=== PATIENT | female | born 1975 | race Caucasian/White ===

== ENCOUNTER 2025-03-13 12:20 | Emergency (ER) | payer SELFPAY ==
[2025-03-13] MEDS ORDERED: Famotidine/PF 20 mg/2ml Vial ONE (12:38)
[2025-03-13 12:47] LABS: #Basophils 0.2 thou/uL (0.0-0.2); #Eosinophils 0.1 thou/uL (0.0-0.7); #Lymphocytes 2.0 thou/uL (1.20-3.40); #Monocytes 0.5 thou/uL (0.11-0.59); #Neutrophils 11.2 thou/uL (1.40-6.50); %Basophils 1.5 % (0.0-1.0); %Eosinophils 0.5 % (0.0-10.0); %Lymphocytes 14.5 % (21.0-51.0); %Monocytes 3.5 % (0.0-10.0); %Neutrophils 80.0 % (42.0-75.0); Hematocrit 42.1 % (36.0-47.0); Hemoglobin 14.4 g/dL (12.0-16.0); Mean Corpuscular Hemoglobin 27.4 pg (27.0-31.0); Mean Corpuscular Volume 80.0 fl (78.0-98.0); Platelet Count 462 10x3/uL (130-400); Red Blood Cell (RBC) Count 5.27 mill/uL (4.20-5.40); White Blood Cell (WBC) Count 14.0 10x3/uL (4.8-10.8)
[2025-03-13 13:02] LABS: ALT (SGPT) 13 U/L (Less than 34); AST (SGOT) 29 U/L (11-34); Albumin 5.0 g/dL (3.1-4.5); Alkaline Phosphatase 128 U/L (40-110); Anion Gap 22 mmol/L (10-20); BUN (Urea Nitrogen) 11 mg/dL (9.8-20.1); Bilirubin, Total 0.5 mg/dL (0.3-1.2); Calc. Creatinine Clearance 0 mL/min (70-130); Calcium 10.0 mg/dL (7.8-10.44); Carbon Dioxide 22 mmol/L (22-29); Chloride 99 mmol/L (98-107); Globulin 4.2 g/dL (2.4-3.5); Glucose 171 mg/dL (70-105); Lipase 38 U/L (8-78); Potassium 4.2 mmol/L (3.5-5.1); Sodium 139 mmol/L (136-145); Troponin I 0.014 ng/mL (< 0.028)
[2025-03-13 13:03] LABS: Acetaminophen Less than 10 mcg/mL (Less than 10); Salicylate Less than 8.0 mg/dL (Less than 8.0)
[2025-03-13 14:37] LABS: Glucose, Urine (Dipstick) Negative (Negative); Leukocyte Negative (Negative); Protein, Urine (Dipstick) Negative (Neg-Trace); Specific Gravity, Urine 1.015 (1.005-1.030)
[2025-03-13 14:45] LABS: Cocaine Metabolite Screen Negative (Negative); THC/Cannabinoid Screen PRELIM POSITIVE (Negative); Tricyclic Screen Negative (Negative)
[2025-03-13 14:49] LABS: Bacteria/HPF Rare-Few HPF (None Seen); CAUTI Indications for Culture Pelvic or flank pain; RBC/HPF None Seen HPF (0-3); WBC/HPF 0-3 HPF (0-3)
[2025-03-13 14:50] LABS: Urine Culture Reflex No No
[2025-03-13] MEDS ORDERED: Ondansetron PF 4 MG/2 ML Vial ONE (16:54)
== END 2025-03-13 17:57 | disposition home or self-care (01) ==
LOC: NAV ERS 12:20
DX: R11.2 Nausea with vomiting, unspecified (principal); E86.0 Dehydration; F12.10 Cannabis abuse, uncomplicated; Z87.891 Personal history of nicotine dependence
CPT/HCPCS: 36415; 74177; 80053; 80306; 80307; 81001; 83605; 83690; 84484; 85025; 93005; 96361; 96365; 96375; 96376; J1308; J1630; J2405; J2550; J7030